=== PATIENT | male | born 1955 | race Caucasian/White ===

== ENCOUNTER → 2018-01-19 09:09 | Outpatient (CLI) | payer OTHER, SELFPAY ==
[2018-01-19 10:05] LABS: Amphetamine Urine VISTA NEGATIVE (<1000 ng/mL); Barbiturate Urine VISTA NEGATIVE (< 200 ng/mL); Benzodiazepine Urine VISTA NEGATIVE (< 200 ng/mL); Cocaine Urine VISTA NEGATIVE (< 300 ng/mL); Ecstacy Urine VISTA NEGATIVE (< 500 ng/mL); Methadone Urine VISTA NEGATIVE (< 300 ng/mL); PCP Urine VISTA NEGATIVE (< 25 ng/mL); THC Urine VISTA NEGATIVE (< 50 ng/mL); Vista UDS pH Range 6
== END ==
PROVIDERS: Family Provider Nurse Practitioner Family; PCP Nurse Practitioner Family; Visit Provider Anesthesiology Pain Medicine
DX: F11.20 Opioid dependence, uncomplicated (principal)
CPT/HCPCS: 80307

== ENCOUNTER → 2019-01-17 | Outpatient (CLI) | payer MEDICARE, OTHER, SELFPAY ==
[2019-01-17 10:28] LABS: Amphetamine Urine VISTA NEGATIVE (<1000 ng/mL); Barbiturate Urine VISTA NEGATIVE (< 200 ng/mL); Benzodiazepine Urine VISTA NEGATIVE (< 200 ng/mL); Cocaine Urine VISTA NEGATIVE (< 300 ng/mL); Ecstacy Urine VISTA NEGATIVE (< 500 ng/mL); Methadone Urine VISTA NEGATIVE (< 300 ng/mL); PCP Urine VISTA NEGATIVE (< 25 ng/mL); THC Urine VISTA NEGATIVE (< 50 ng/mL); Vista UDS pH Range 6
== END | disposition home or self-care (01) ==
LOC: LAB 09:04
PROVIDERS: Family Provider Nurse Practitioner Family; PCP Nurse Practitioner Family; Referring Provider Anesthesiology Pain Medicine; Visit Provider Anesthesiology Pain Medicine
DX: F11.20 Opioid dependence, uncomplicated (principal)
CPT/HCPCS: 80307

== ENCOUNTER → 2019-12-14 10:50 | Outpatient (CLI) | payer MEDICARE, OTHER, SELFPAY ==
[2019-12-14 11:29] LABS: Amphetamine Urine VISTA NEGATIVE (<1000 ng/mL); Barbiturate Urine VISTA NEGATIVE (< 200 ng/mL); Benzodiazepine Urine VISTA NEGATIVE (< 200 ng/mL); Cocaine Urine VISTA NEGATIVE (< 300 ng/mL); Ecstacy Urine VISTA NEGATIVE (< 500 ng/mL); Methadone Urine VISTA NEGATIVE (< 300 ng/mL); PCP Urine VISTA NEGATIVE (< 25 ng/mL); THC Urine VISTA NEGATIVE (< 50 ng/mL); Vista UDS pH Range 7
== END ==
PROVIDERS: PCP Nurse Practitioner Family; Referring Provider Anesthesiology Pain Medicine; Visit Provider Anesthesiology Pain Medicine
DX: F11.20 Opioid dependence, uncomplicated (principal)
CPT/HCPCS: 80307

== ENCOUNTER → 2020-08-13 09:04 | Outpatient (CLI) | payer MEDICARE, OTHER, SELFPAY ==
[2020-08-13 10:11] LABS: Amphetamine Urine VISTA NEGATIVE (<1000 ng/mL); Barbiturate Urine VISTA NEGATIVE (< 200 ng/mL); Benzodiazepine Urine VISTA NEGATIVE (< 200 ng/mL); Cocaine Urine VISTA NEGATIVE (< 300 ng/mL); Ecstacy Urine VISTA NEGATIVE (< 500 ng/mL); Methadone Urine VISTA NEGATIVE (< 300 ng/mL); PCP Urine VISTA NEGATIVE (< 25 ng/mL); THC Urine VISTA NEGATIVE (< 50 ng/mL); Vista UDS pH Range 8
== END ==
PROVIDERS: PCP Nurse Practitioner Family; Referring Provider Anesthesiology Pain Medicine; Visit Provider Anesthesiology Pain Medicine
DX: F11.20 Opioid dependence, uncomplicated (principal)
CPT/HCPCS: 80307

== ENCOUNTER → 2020-12-24 07:08 | Outpatient (CLI) | payer MEDICARE, OTHER, SELFPAY ==
--- NOTE | 2020-12-24 07:14 | MRI_ITS ---
History: LOW BACK PAIN X YEARS Technique: T1 and T2 MR imaging of the lumbar spine performed without contrast enhancement in axial and sagittal planes. Comparison: January 26, 2017 Findings: Alignment of the lumbar vertebral bodies is normal. Multilevel disc degeneration and facet arthropathy again seen. Modic type II endplate changes at L3-4 persist without significant change. Conus medullaris and cauda equina are normal. Paraspinal soft tissues are normal. Interval placement of aortobiiliac graft across 4.2 cm infrarenal AAA. T12-L1: No disc protrusion. Normal caliber spinal canal and neural foramina. L1 - L2: No disc protrusion. Normal caliber spinal canal and neural foramina. L2-3: Mild disc bulging without significant spinal stenosis. Moderate narrowing of the right neural foramen related to prominent facet arthropathy and lateral disc bulging. L3-4: Prominent right central disc osteophyte complex causing significant narrowing of the right lateral recess and adjacent neural foramen. Right-sided facet arthropathy also contributes to the neural foraminal narrowing. Interval improvement in the epidural adipose tissue resulting in decrease in the narrowing of the thecal sac. L4-5: Interval improvement in the disc protrusion and in the amount of posterior epidural adipose tissue resulting in less prominent spinal stenosis moderate narrowing of the neural foramina related to facet arthropathy. L5-S1: No disc protrusion. Normal caliber spinal canal and neural foramina. IMPRESSION: Improving spinal stenosis at L3-4 and L4-5 secondary to decrease in the epidural adipose tissue and in the improvement of the L4-5 disc protrusion. Persistent significant narrowing of the right L3-4 lateral recess and neural foramen secondary to right central disc osteophyte complex and facet arthropathy. at 0825 Reported and signed by: Yoni Ramirez MD Electronically Signed: Yoni Ramirez MD at 8:24 EDT Tel , Service support , MRI/Spine Lumbar (Routine)
== END ==
PROVIDERS: PCP Nurse Practitioner Family; Referring Provider Anesthesiology Pain Medicine; Visit Provider Anesthesiology Pain Medicine
DX: M54.9 Dorsalgia, unspecified (principal); M79.606 Pain in leg, unspecified
CPT/HCPCS: 72148

== ENCOUNTER → 2021-01-31 10:03 | Outpatient (CLI) | payer MEDICARE, OTHER, SELFPAY ==
[2021-01-31 11:33] LABS: Amphetamine Urine VISTA NEGATIVE (<1000 ng/mL); Barbiturate Urine VISTA NEGATIVE (< 200 ng/mL); Benzodiazepine Urine VISTA NEGATIVE (< 200 ng/mL); Cocaine Urine VISTA NEGATIVE (< 300 ng/mL); Ecstacy Urine VISTA NEGATIVE (< 500 ng/mL); Methadone Urine VISTA NEGATIVE (< 300 ng/mL); PCP Urine VISTA NEGATIVE (< 25 ng/mL); THC Urine VISTA NEGATIVE (< 50 ng/mL); Vista UDS pH Range 6
== END ==
PROVIDERS: PCP Nurse Practitioner Family; Referring Provider Anesthesiology Pain Medicine; Visit Provider Anesthesiology Pain Medicine
DX: F11.20 Opioid dependence, uncomplicated (principal)
CPT/HCPCS: 80307

== ENCOUNTER → 2021-12-23 | Outpatient (CLI) | payer MEDICARE, OTHER, SELFPAY ==
--- NOTE | 2021-12-23 08:35 | LES_PTH ---
PATIENT: MARIAN ZIMMERMAN LOC: [facility] U#:[id number] AGE/SX: 66/M ROOM: RE12/23/[address]: Dr. Gavin Espinoza MD : 1955 BED: DIS: 12/23/2021 SPEC #: [id number] RECD: 12/23/21 15:06 STATUS: ANTONIA CHAVEZ #: [id number] EV: 12/23/21 08:[address]: Gavin Espinoza DEPT: SURGICAL PATHOLOGY RECD BY: Kym Mandujano ENTERED: 12/24/21 07:51 SP TYPE: Lesion OTHR DR: Claudia Bautista, ZOE Tissues: Skin of external ear, NOS Procedures: Surgery Specimen Level IV HEADER OPERATION: Right ear lesion biopsy PRE-OP DIAGNOSIS: Right ear lesion TISSUE SUBMITTED: Right ear lesion MICROSCOPIC DIAGNOSIS Lesion of right ear, biopsy: Consistent with basal cell carcinoma. AM:bambi 12/25/2021 COMMENT Case has been reviewed in consultation with Dr. Nicholas who concurs with the above diagnosis. IDC:SJ MICROSCOPIC DESCRIPTION Slides are reviewed. GROSS DESCRIPTION Received in fixative is one container labeled with the patient's name and designated right ear lesion. The specimen consists of a piece of brower-white skin measuring 0.5 x 0.2 x 0.1 cm. The specimen is totally submitted in one cassette. / LORETTA:bambi 12/24/2021 TC:0 CPT: 12234
== END | disposition home or self-care (01) ==
LOC: LABSPEC 15:27
PROVIDERS: PCP Nurse Practitioner Family; Visit Provider Otolaryngology
DX: R22.0 Localized swelling, mass and lump, head (principal)
CPT/HCPCS: 88305

== ENCOUNTER → 2022-01-28 | Outpatient (CLI) | payer MEDICARE, OTHER, SELFPAY ==
--- NOTE | 2022-01-28 06:30 | EKG12_ITS ---
Test Reason : PRE OP Blood Pressure : / mmHG Vent. Rate : 084 BPM Atrial Rate : 084 BPM P-R Int : 276 ms QRS Dur : 080 ms QT Int : 340 ms P-R-T Axes : 069 061 084 degrees QTc Int : 401 ms Sinus rhythm with 1st degree A-V block Otherwise normal ECG No previous ECGs available Confirmed by NYDIA FINCH, ERNESTINE ([id number]), continuity editor ROSEANNA LEMOS ([id number]) on 01/30/2022 9:31:42 AM Referred By: Israel Espinoza Confirmed By:ERNESTINE STAFFORD MD
[2022-01-28 06:35] VITALS: BP 103/67; PULSE 77; RESP 18; TEMP 36.8; O2SAT 90; BMI 30.1
[2022-01-28] MEDS: Lactated Ringers 1,000 ML 15 ML IV (06:35)
[2022-01-28 06:56] LABS: Bedside Glucose 118 mg/dL (74-106)
[2022-01-28 07:07] LABS: Anion Gap 4 (5-15); BUN 18 mg/dL (7-18); BUN/Creat Ratio 16.1 RATIO (10-20); Calcium,Total 12.2 mg/dL (8.5-10.1); Chloride 102 mmol/L (98-107); Creatinine, Serum 1.12 mg/dL (0.70-1.30); EST Glomerular Filtration Rate 69 mL/min (>60); Est Glom Filt Rate - Afr Amer 84 mL/min (>60); Estimated Creatinine Clearance 76.49 ml/min; Glucose 107 mg/dL (74-106); Potassium 3.8 mmol/L (3.5-5.1); Sodium Level 136 mmol/L (136-145)
== END | disposition home or self-care (01) ==
LOC: AC 07:52 → PAT 02-28 08:18
PROVIDERS: PCP Nurse Practitioner Family; Referring Provider Otolaryngology; Visit Provider Otolaryngology
DX: Z01.818 Encounter for other preprocedural examination (principal); C44.319 Basal cell carcinoma of skin of other parts of face; I44.0 Atrioventricular block, first degree; Z53.9 Procedure and treatment not carried out, unspecified reason; Z79.899 Other long term (current) drug therapy
CPT/HCPCS: 80048; 82962; 93005; J7120; J2405

== ENCOUNTER → 2022-04-15 | Outpatient (CLI) | payer MEDICARE, OTHER, SELFPAY ==
--- NOTE | 2022-04-15 15:51 | PFTCOMP_ITS ---
COMPLETE PULMONARY FUNCTION TEST INTERPRETATION Brief HPI: Patient is a 67-year-old male, currently under the care of myself, who presents to [facility] for complete pulmonary function tests secondary to diagnosis of dyspnea. Respiratory therapist reports good effort and reproducible results. Interpretation: Forced expiration spirometry shows a mild large airways obstructive ventilatory defect with an FEV1 of 76% predicted. There is no significant bronchodilator response by strict ATS criteria. Spirograms are of good quality and plateau slowly, indicating slowly emptying areas of the lungs. The respiratory flow volume loop shows decreased expiratory flow rates at all lung volumes consistent with airway obstruction. Lung volumes by body plethysmography show an elevated total lung capacity at 9.54 L, 132% predicted. FRC and RV are elevated out of proportion. Lung volume measurements are consistent with hyperinflation and air-trapping. Diffusion capacity by carbon monoxide is decreased at 68% predicted. The airway resistance is normal. No previous pulmonary function tests were available for review. Impression: Irreversible mild large airways obstructive ventilatory defect with a symmetric reduction diffusion capacity, resulting in air trapping with hyperinflation.
== END | disposition home or self-care (01) ==
LOC: PSN 12:13
PROVIDERS: PCP Nurse Practitioner Family; Referring Provider Internal Medicine Critical Care Medicine; Visit Provider Internal Medicine Critical Care Medicine
DX: R06.00 Dyspnea, unspecified (principal); F17.210 Nicotine dependence, cigarettes, uncomplicated
CPT/HCPCS: 94060; 94726; 94729

== ENCOUNTER → 2022-04-17 | Outpatient (CLI) | payer MEDICARE, OTHER, SELFPAY ==
[2022-04-17 14:00] VITALS: PULSE 100; PULSE 114; PULSE 116; PULSE 119; PULSE 123; PULSE 124; PULSE 131; O2SAT 94; O2SAT 95; O2SAT 96; O2SAT 97
--- NOTE | 2022-04-21 05:46 | PCM.PSN.6M ---
PSN 6 Minute Walk Test 6 Minute Walk Test 6 Minute Walk Test: 6 Minute Walk Test PSN:6-Minute Walk Test Start: 04/17/22 14:19 Freq: Status: Active Protocol: RESP.6MINW Document 04/17/22 14:00 EW (Rec: 04/17/22 14:25 EW [id number]) 6 Minute Walk Test Date Performed 04/17/22 Time Performed 14:00 Height 6 ft 3 in Weight: 96.162 kg Weight in Pounds 212.[address]: Sam Lemos Assistive device used: None Pre-test Oxygen Delivery Method Room Air Pulse Ox (%) 95 Pulse Rate (60-100 beats/min) 124 H Dyspnea Jose Alberto Scale (0-10) 3 Exertion Jose Alberto Scale (6-20) 8 1st minute Oxygen Delivery Method Room Air Pulse Ox (%) 96 Pulse Rate (60-100 beats/min) 116 H 2nd minute Oxygen Delivery Method Room Air Pulse Ox (%) 95 Pulse Rate (60-100 beats/min) 123 H 3rd minute Oxygen Delivery Method Room Air Pulse Ox (%) 94 Pulse Rate (60-100 beats/min) 131 H 4th minute Oxygen Delivery Method Room Air Pulse Ox (%) 95 Pulse Rate (60-100 beats/min) 119 H 5th minute Oxygen Delivery Method Room Air Pulse Ox (%) 95 Pulse Rate (60-100 beats/min) 114 H 6th minute Oxygen Delivery Method Room Air Pulse Ox (%) 95 Pulse Rate (60-100 beats/min) 100 Post-test Oxygen Delivery Method Room Air Pulse Ox (%) 97 Pulse Rate (60-100 beats/min) 131 H Dyspnea Jose Alberto Scale (0-10) 3 Exertion Jose Alberto Scale (6-20) 12 Full Laps Walked 18 Partial Lap, Number of Tiles Walked 34 Total Distance Walked (ft) 1096 Interpretation Interpretation: The patient was able to ambulate 1096 feet over the course of 6 minutes on room air with no assistive devices or breaks. The patient experienced no significant desaturation, but did have persistent tachycardia with a peak heart rate of 131 bpm. These findings are consistent with a cardiovascular limitation at exercise tolerance. Recommendations Recommendations: No supplemental oxygen is indicated at this time.
== END | disposition home or self-care (01) ==
LOC: PSN 14:02
PROVIDERS: PCP Nurse Practitioner Family; Referring Provider Internal Medicine Critical Care Medicine; Visit Provider Internal Medicine Critical Care Medicine
DX: R06.00 Dyspnea, unspecified (principal); F17.210 Nicotine dependence, cigarettes, uncomplicated
CPT/HCPCS: 94618

== ENCOUNTER → 2022-09-24 | Outpatient (CLI) | payer MEDICARE, OTHER, SELFPAY ==
[2022-09-24 11:46] LABS: Amphetamine Urine VISTA NEGATIVE (<1000 ng/mL); Barbiturate Urine VISTA NEGATIVE (< 200 ng/mL); Benzodiazepine Urine VISTA NEGATIVE (< 200 ng/mL); Cocaine Urine VISTA NEGATIVE (< 300 ng/mL); Ecstacy Urine VISTA NEGATIVE (< 500 ng/mL); Methadone Urine VISTA NEGATIVE (< 300 ng/mL); PCP Urine VISTA NEGATIVE (< 25 ng/mL); THC Urine VISTA NEGATIVE (< 50 ng/mL); Vista UDS pH Range 6
== END | disposition home or self-care (01) ==
LOC: LAB 10:11
PROVIDERS: PCP Nurse Practitioner Family; Visit Provider Anesthesiology Pain Medicine
DX: F11.20 Opioid dependence, uncomplicated (principal)
CPT/HCPCS: 80307

== ENCOUNTER 2022-10-27 18:10 | Emergency (ER) | payer MEDICARE, OTHER, SELFPAY ==
[2022-10-27] VITALS (13 sets, daily range): BP systolic 102–157; BP diastolic 63–81; PULSE 93–134; RESP 18–27; TEMP 36.8–39.5; O2SAT 94–99; BMI 31.4
[2022-10-27] MEDS: 0.9% Normal Saline 1,000 ML 999 ML IV (19:15)
[2022-10-27] MEDS: Acetaminophen 500 MG Tablet 1000 MG PO (19:15)
--- NOTE | 2022-10-27 19:17 | EDS_ITS ---
HPI History of Present Illness Chief Complaint: Fever Narrative Narrative: History is from patient as well as family. Patient presents with fever about 1 week after chemotherapy. This patient was diagnosed with bladder cancer and had bladder removal and ileal conduit placed this July [address] Holdne at [facility]. He sees Dr. Townsend for chemotherapy here. He had his second chemotherapy on Thursday. He started with a fever today. He is not coughing or short of breath. He has no pains anywhere. He has no change in the urine output or appearance. He has no rash or sore area. No diarrhea. No headache. He feels overall tired and feels too weak to walk around and has a fever. [facility] Medical History Arthritis Back pain Cancer CPAP (continuous positive airway pressure) dependence Diabetes Dietary restriction Fatty liver Gastric reflux History of edema History of pain when walking History of steroid therapy History of stress test Hx of abdominal aortic aneurysm Hypertension Marijuana use Pain Smoker Thyroid disease Wears dentures Wears glasses Wears hearing aid Home Medications diphenhydramine HCl 50 mg capsule (Unisom SleepGels) 50 mg PO QHS 01/21/22 [History Last Taken Unknown] enalapril maleate 20 mg tablet 40 mg PO DAILY 01/21/22 [History Last Taken 01/28/22] hydrocodone 7.5 mg-acetaminophen 325 mg tablet 1 tab PO Q6H PRN Pain 01/21/22 [History Last Taken Unknown] indapamide 2.5 mg tablet 2.5 mg PO DAILY 01/21/22 [History Last Taken Unknown] metformin 500 mg tablet 500 mg PO BID 01/21/22 [History Last Taken Unknown] omeprazole 20 mg delayed release,disintegrating tablet 20 mg PO DAILY 01/21/22 [History Last Taken 01/28/22] cinacalcet 30 mg tablet 30 mg PO BID 03/11/22 [History Last Taken Unknown] levofloxacin 750 mg tablet 750 mg PO DAILY #4 tabs 10/27/22 [Rx Last Taken Unknown] Allergy/AdvReac Type Severity Reaction Status Date / Time warfarin [From Coumadin] Allergy LEGS TURN Verified 10/27/22 18:13 PURPLE Surgical History History of cardiac catheterization History of excision of lesion Hx of tonsillectomy Hx of total knee arthroplasty Social History Smoking Status: Current every day smoker tobacco type: cigarettes ROS ROS ED Constitutional Constitutional ED: Reports chills, fever(s) and subjective; Denies sweats ENT ENT ED: Denies rhinorrhea or sore throat Cardiovascular Cardiovascular: Denies chest pain or palpitations Respiratory/Chest Respiratory/Chest: Denies cough or dyspnea Gastrointestinal Gastrointestinal: Denies abdominal pain, nausea or vomiting Genitourinary Genitourinary ED: Denies dysuria or hematuria Musculoskeletal Musculoskeletal: Denies myalgias Integumentary Denies abscess, Abrasions or rash Neurologic Neurologic: Denies headache(s) Hematologic/Lymphatic Hematologic/Lymphatic: Denies lymphadenopathy Allergic/Immunologic Allergic/Immunologic ED: Denies urticaria EXAM Physical Exam Narrative Exam Narrative: Patient is awake alert. He looks like he does not feel well but is not toxic. HEENT: He does have dry mucous membranes. No sinus tenderness or exudate noted. No nasal discharge. Neck is supple without any meningismus. Breathing is somewhat heavy but he denies being short of breath. His breath sounds are clear. He is not coughing. His saturations are about 95 to 96% on room air showing no hypoxia and he does have a long history of smoking and just quit a couple weeks ago. He has a med port in the right upper chest that was accessed. It looks healthy and is not at all red or inflamed or tender. Heart is regular but is tachycardic about 120. I do not hear a murmur. He has distal pulses that are okay and normal. Abdomen is soft nontender. Ileal conduit in the right lower quadrant. Urine appears normal to me and looks normal to his and unchanged from his baseline. No CVA tenderness. Extremities show some tattoos but no rashes or lesions or sores. Neurologic: Patient is awake and alert. He seems tired but there is no focal deficit. Const Vital Signs: 10/27/22 18:11 10/27/22 18:50 10/27/22 18:57 Temperature 102.9 F H Temperature Source Oral Pulse Rate 134 H 122 H Respiratory Rate 18 27 H Respiratory Effort Non-Labored Respiratory Pattern Normal Blood Pressure 157/76 H 141/81 H Blood Pressure Mean 103 101 Pulse Ox 95 96 Oxygen Delivery Method Room Air Room Air 10/27/22 18:58 10/27/22 19:11 10/27/22 19:17 Temperature 103.1 F H Temperature Source Oral Pulse Rate 124 H 124 H Respiratory Rate 27 H 27 H Respiratory Effort Respiratory Pattern Blood Pressure 144/79 H 144/79 H Blood Pressure Mean 100 100 Pulse Ox 95 96 96 Oxygen Delivery Method Room Air Room Air Room Air 10/27/22 20:01 10/27/22 20:12 10/27/22 20:26 Temperature 102.2 F H 102.2 F H Temperature Source Oral Oral Pulse Rate 111 H 100 112 H Respiratory Rate 22 H 21 H 23 H Respiratory Effort Respiratory Pattern Blood Pressure 141/79 H 141/79 H 117/64 Blood Pressure Mean 99 99 81 Pulse Ox 95 97 96 Oxygen Delivery Method Room Air Room Air Room Air 10/27/22 21:13 10/27/22 21:43 Temperature 99.5 F H Temperature Source Oral Pulse Rate 101 H 107 H Respiratory Rate 21 H 22 H Respiratory Effort Respiratory Pattern Blood Pressure 116/63 110/70 Blood Pressure Mean 80 83 Pulse Ox 99 95 Oxygen Delivery Method Room Air Room Air MDM MDM MDM Narrative Medical decision making narrative: My independent interpretation of the patient's single view chest x-ray shows Mediport and some chronic appearing changes but no acute infiltrate. Final reading by radiology is no acute findings in the chest. Patient has a normal white count of 4.8 and normal neutrophil count. He is anemic. Hemoglobin 7 6. I do not have a prior. Electrolytes showed mild increase creatinine 1.31. But he is given IV fluids. Liver function test showed mild elevation of the alk phos at 224 but he has no abdominal pain. No Urine showed some signs of suspicious infection but he has an ileal conduit. Culture is pending. I discussed the case with his oncologist, Dr. Townsend. Patient has a normal lac lance of 1.2. His heart rate is now down to 90s with IV fluids and decrease of his temperature to 99.5. He wants to go home. Dr. Townsend was okay with this plan. We will give him a dose of Levaquin here. I will write him for another 4 days of Levaquin. A respiratory panel was sent off. They will follow him up in the office. I talked about all these issues plans and reasons to return with patient and his family members in the room. Lab Data Attestation: I reviewed the patient's lab results. Labs: Laboratory Results - last 24 hr 10/27/22 10/27/22 10/27/22 18:55 18:55 18:55 WBC 4.8 RBC 3.10 L Hgb 7.6 L Hct 24.9 L MCV 80.3 MCH 24.5 L MCHC 30.5 L RDW Std Deviation 67.9 H RDW Coeff of Cintia 24.3 H Plt Count 228 MPV 10.1 Neut % (Auto) Not Reportable Absolute Neuts (auto) 4.1 Absolute Lymphs (auto) 0.48 L Total Counted 100 Neutrophils % (Manual) 81 H Band Neutrophils % 4 Lymphocytes % (Manual) 10 L Monocytes % (Manual) 2 Myelocytes % 3 H Diff Path Review May foll Dohle Bodies 2+ Platelet Estimate ADEQUATE Anisocytosis 2+ Microcytosis 1+ Macrocytosis 1+ PT 15.8 H INR 1.3 APTT 28.3 Sodium 133 L Potassium 4.6 Chloride 103 Carbon Dioxide 25.0 Anion Gap 5 BUN 35 H Creatinine 1.31 H Estim Creat Clear Calc 64.50 Est GFR (MDRD) Af Amer 70 Est GFR (MDRD) Non-Af 58 L BUN/Creatinine Ratio 26.7 H Glucose 114 H Lactic Acid Calcium 8.1 L Total Bilirubin 1.40 H AST 40 H ALT 56 Alkaline Phosphatase 224 H Total Protein 7.1 Albumin 2.8 L Globulin 4.3 H Albumin/Globulin Ratio 0.7 L Urine Color Urine Clarity Urine pH Ur Specific [place] Urine Protein Urine Glucose (UA) Urine Ketones Urine Occult Blood Urine Nitrite Urine Bilirubin Urine Urobilinogen Ur Leukocyte Esterase Urine RBC Urine WBC Ur Squamous Epith Cells Urine Bacteria Urine Mucus 10/27/22 10/27/22 19:45 20:46 WBC RBC Hgb Hct MCV MCH MCHC RDW Std Deviation RDW Coeff of Cintia Plt Count MPV Neut % (Auto) Absolute Neuts (auto) Absolute Lymphs (auto) Total Counted Neutrophils % (Manual) Band Neutrophils % Lymphocytes % (Manual) Monocytes % (Manual) Myelocytes % Diff Path Review Dohle Bodies Platelet Estimate Anisocytosis Microcytosis Macrocytosis PT INR APTT Sodium Potassium Chloride Carbon Dioxide Anion Gap BUN Creatinine Estim Creat Clear Calc Est GFR (MDRD) Af Amer Est GFR (MDRD) Non-Af BUN/Creatinine Ratio Glucose Lactic Acid 1.2 Calcium Total Bilirubin AST ALT Alkaline Phosphatase Total Protein Albumin Globulin Albumin/Globulin Ratio Urine Color Yellow Urine Clarity Sl. Cloudy Urine pH 6.0 Ur Specific [place] 1.010 Urine Protein 30 H Urine Glucose (UA) Normal Urine Ketones Negative Urine Occult Blood 50 H Urine Nitrite Positive H Urine Bilirubin Negative Urine Urobilinogen 1 H Ur Leukocyte Esterase 500 H Urine RBC 0-5 SEEN Urine WBC 10-25 SEEN Ur Squamous Epith Cells 0 SEEN Urine Bacteria 1+ Urine Mucus 0 SEEN Radiography Diagnostic Testing: Clinical Impression(s) from Imaging Studies Chest X-Ray 10/27/22 19:22 IMPRESSION: No acute findings in the chest. Electronically Signed: Jhon Babcock MD at 19:43 EDT Reading Location ID and State: [facility] / [place] , Service support , Discharge Plan Triage Chief Complaint: Fever ED Provider: Migel Cruz Dx/Rx/DC Orders Clinical Impression: Fever, Bladder cancer, Anemia Instructions: ED FUO Adult Prescriptions: New levofloxacin 750 mg tablet 750 mg PO DAILY Qty: 4 0RF No Action cinacalcet 30 mg tablet 30 mg PO BID metformin 500 mg Tablet 500 mg PO BID diphenhydramine HCl [Unisom SleepGels] 50 mg Capsule 50 mg PO QHS indapamide 2.5 mg Tablet 2.5 mg PO DAILY enalapril maleate 20 mg Tablet 40 mg PO DAILY hydrocodone-acetaminophen 7.5-325 mg Tablet 1 tab PO Q6H PRN (Reason: Pain) omeprazole 20 mg Tablet,Disintegrat, Delay Rel 20 mg PO DAILY Primary Care Provider: Claudia Bautista NP Referrals: Aristides Townsend DO [Med Staff - Active Staff] - (Call in the morning for follow-up visit in the next couple days.) Claudia Bautista NP, LASTING ROOM MACHINE OPERATOR-C [Primary Care Provider] - Disposition Disposition: Home, Self Care
--- NOTE | 2022-10-27 19:22 | RAD_ITS ---
EXAM: XR CHEST, 1 VIEW CLINICAL INDICATION: Neutropenic Fever TECHNIQUE: Frontal view of the chest. This report was created using [employer] report generation technology. COMPARISON: None. FINDINGS: LUNGS AND PLEURAL SPACES: Unremarkable. No consolidation or edema. No pneumothorax. No effusion. HEART: Unremarkable. Cardiac silhouette not enlarged. MEDIASTINUM: Central airways and mediastinal contour are unremarkable. BONES/JOINTS: Unremarkable. SOFT TISSUES: Unremarkable. TUBES, LINES AND DEVICES: There is a right Port-A-Cath and/or mediport in place. The tip is in the superior vena cava. RAD/Chest 1 View (Portable) IMPRESSION: No acute findings in the chest. Electronically Signed: Jhon Babcock MD at 19:43 EDT ,
[2022-10-27 19:42] LABS: Hematocrit 24.9 % (40-54); Hemoglobin 7.6 g/dL (13.0-16.5); Mean Corp Hgb Conc 30.5 g/dL (32-36); Mean Corpuscular Hgb 24.5 pg (27.0-32.0); Mean Corpuscular Volume 80.3 fL (80-94); Mean Platelet Vol. 10.1 fl (6.2-12.0); POSITIVE COUNT YES; POSITIVE DIFFERENTIAL YES; POSITIVE MORPHOLOGY YES; Platelet Count 228 K/mm3 (150-450); RBC Distribution Width CV 24.3 % (11.6-14.6); RBC Distribution Width SD 67.9 fl (35.1-43.9); White Blood Count 4.8 K/mm3 (4.4-11.0)
[2022-10-27 19:44] LABS: Differential Indicated MANUAL DIFF
[2022-10-27 19:46] LABS: International Normalized Ratio 1.3; Prothrombin Time (Protime)PT. 15.8 SECONDS (11.7-14.9)
[2022-10-27 19:47] LABS: Partial Thromboplast Time 28.3 Seconds (24.1-36.2)
--- NOTE | 2022-10-27 19:49 | ED.RN ---
PT REFUSED TO CHANGE URINE BAG IN ORDER TO OBTAIN A STERILE SPECIMEN FOR URINE CULTURE. DR. MESSER AWARE, OKAY TO SEND DOWN SAMPLE FROM CURRENT URINE BAG.
[2022-10-27 19:54] LABS: Mucous, Urine 0 SEEN /hpf (<or=2+); Squamous Epithelial Cells - UA 0 SEEN /hpf (0-5)
[2022-10-27 19:55] LABS: Color, Urine Yellow (Yellow); Glucose, Dipstick Normal (Normal); Ketone-Dipstick Negative (Negative); Leukocyte Esterase-Dipstick 500 /ul (Negative); Nitrite-Dipstick Positive (Negative); Occult Blood-Urine 50 /ul (Negative); Protein-Dipstick 30 mg/dl (Negative); Urine Bilirubin Dipstick Negative (Negative); Urine Clarity Sl. Cloudy (Clear); Urine Urobilinogen 1 mg/dl (Normal)
[2022-10-27 19:55] LABS: ALB/GLOB Ratio 0.7 RATIO (0.9-2.4); AST(SGOT) 40 U/L (15-37); Alanine Aminotransfer ALT/SGPT 56 U/L (16-61); Albumin, Serum 2.8 g/dL (3.2-5.0); Alkaline Phosphatase 224 U/L (45-117); Anion Gap 5 (5-15); BUN 35 mg/dL (7-18); BUN/Creat Ratio 26.7 RATIO (10-20); Calcium,Total 8.1 mg/dL (8.5-10.1); Chloride 103 mmol/L (98-107); Creatinine, Serum 1.31 mg/dL (0.70-1.30); EST Glomerular Filtration Rate 58 mL/min (>60); Est Glom Filt Rate - Afr Amer 70 mL/min (>60); Globulin 4.3 g/dL (2.2-4.2); Glucose 114 mg/dL (74-106); Potassium 4.6 mmol/L (3.5-5.1); Protein, Total 7.1 g/dL (6.4-8.2); Sodium Level 133 mmol/L (136-145)
[2022-10-27 20:04] LABS: Anisocytosis 2+; Dohle Bodies 2+; Lymphocyte 10 % (19-41); Macrocytosis 1+; Microcytosis 1+; Monocyte 2 % (0-10); Myelocyte 3 % (0-0); Neutrophil-Band 4 % (0-5); Neutrophil-Segmented 81 % (47-70); Platelet Estimate ADEQUATE (ADEQ); Total Cells Counted 100 (MANUAL DIFF)
[2022-10-27 20:04] LABS: Bacteria 1+ /hpf (None Seen)
[2022-10-27 20:05] LABS: Red Blood Cells-Urine 0-5 SEEN /hpf (0-5); White Blood Cells 10-25 SEEN /hpf (0-5)
[2022-10-27 20:06] LABS: Absolute Lymphocyte Count 0.48 X10^3/uL (0.83-4.51); Absolute Neutrophil Count 4.1 X10^3/uL (2.0-7.7)
[2022-10-27] MEDS: 0.9% Normal Saline 1,000 ML 50 ML IV (20:42)
[2022-10-27 21:19] LABS: Lactic Acid 1.2 mmol/L (0.4-1.9)
[2022-10-27] MEDS: levoFLOXacin IV 750 MG/150 ML BAG 100 MG IV (21:42)
--- NOTE | 2022-10-28 13:54 | ED.RN ---
PER DR. RICH, PT PRELIMINARY ONE BLOOD CULTURE POSITIVE FOR NEGATIVE RODS. WILL WAIT FOR FINAL RESULTS.
--- NOTE | 2022-10-28 14:09 | ED.RN ---
PRELIMINARY REPORT PRINTED AND REVIEWED PER DR. FULTON. PER DR. FULTON WITH PT HX AND POSITIVE PRELIMINARY BLOOD CULTURE PT SHOULD RETURN TO ED TO BE SEEN. THIS RN CALLED, PT DID NOT ANSWER AND LEFT PT A VOICE MESSAGE WITH ED CALL BACK NUMBER.
--- NOTE | 2022-10-28 14:25 | ED.RN ---
PT RETURNED PHONE CALL TO ED REPORTING POSITIVE BLOOD CULTURE RESULTS AFTER VERIFYING PT INFORMATION. PER PT WILL BE IN TO THE ED SHORTLY.
[2022-10-29 10:49] LABS: Pathologist Review Reviewed
== END 2022-10-27 23:48 | disposition home or self-care (01) ==
PROVIDERS: Emergency Provider Emergency Medicine; PCP Nurse Practitioner Family; Visit Provider Emergency Medicine
DX: R50.9 Fever, unspecified (principal); C67.9 Malignant neoplasm of bladder, unspecified; E11.9 Type 2 diabetes mellitus without complications; F17.210 Nicotine dependence, cigarettes, uncomplicated; I10 Essential (primary) hypertension; Z92.21 Personal history of antineoplastic chemotherapy; Z90.6 Acquired absence of other parts of urinary tract; D64.9 Anemia, unspecified; Z20.822 Contact with and (suspected) exposure to COVID-19
CPT/HCPCS: 99283; 36591; 71045; 80053; 81001; 83605; 85025; 85610; 85730; 87040; 87086; 87428; 87633; J7030; A4216

== ENCOUNTER 2022-10-28 15:11 | Inpatient (IN) | payer MEDICARE, OTHER, SELFPAY ==
[2022-10-28] VITALS (10 sets, daily range): BP systolic 99–164; BP diastolic 66–79; PULSE 80–143; RESP 16–23; TEMP 36.5–39.3; O2SAT 93–100; BMI 28.1; BMI 27.3
--- NOTE | 2022-10-28 15:28 | EDS_ITS ---
HPI History of Present Illness Chief Complaint: Abn Labs Detail of Chief Complaint: Abnormal labs/blood culture Informant: patient Narrative Narrative: Patient presents to the emergency department after being called by the emergency department to be informed that he had a positive blood culture. Patient presented to the emergency department yesterday with complaint of a fever. Patient currently being treated for bladder cancer and his last chemotherapy was 1 week ago. Patient has a urostomy bag. The urine that was obtained was sent for culture and blood cultures were ordered. Lactate was normal initially in the department. ED physician spoke with patient's oncologist and patient wanted to go home so he was discharged on Levaquin. Today's blood culture came back positive for gram-negative rods. He was advised to return to the emergency department. Patient states that he actually feels better than yesterday. Patient was noted to be tachycardic and febrile on arrival to the ER. He denies any rashes. He denies vomiting. He did have some diarrhea this morning. [facility] Medical History Arthritis Back pain Cancer CPAP (continuous positive airway pressure) dependence Diabetes Dietary restriction Fatty liver Gastric reflux History of edema History of pain when walking History of steroid therapy History of stress test Hx of abdominal aortic aneurysm Hypertension Marijuana use Pain Smoker Thyroid disease Wears dentures Wears glasses Wears hearing aid Home Medications diphenhydramine HCl 50 mg capsule (Unisom SleepGels) 50 mg PO QHS 01/21/22 [History Last Taken Unknown] enalapril maleate 20 mg tablet 40 mg PO DAILY 01/21/22 [History Last Taken 01/28/22] hydrocodone 7.5 mg-acetaminophen 325 mg tablet 1 tab PO Q6H PRN Pain 01/21/22 [History Last Taken Unknown] indapamide 2.5 mg tablet 2.5 mg PO DAILY 01/21/22 [History Last Taken Unknown] metformin 500 mg tablet 500 mg PO BID 01/21/22 [History Last Taken Unknown] omeprazole 20 mg delayed release,disintegrating tablet 20 mg PO DAILY 01/21/22 [History Last Taken 01/28/22] cinacalcet 30 mg tablet 30 mg PO BID 03/11/22 [History Last Taken Unknown] levofloxacin 750 mg tablet 750 mg PO DAILY #4 tabs 10/27/22 [Rx Last Taken Unknown] Allergy/AdvReac Type Severity Reaction Status Date / Time warfarin [From Coumadin] Allergy LEGS TURN Verified 10/27/22 18:13 PURPLE Surgical History History of cardiac catheterization History of excision of lesion Hx of tonsillectomy Hx of total knee arthroplasty Social History Smoking Status: Current every day smoker tobacco type: cigarettes ROS ROS ED Review of Systems ROS Unobtainable: other Constitutional Constitutional ED: Reports fever(s) and lethargy; Denies chills, sweats or weight loss Eyes Eyes: Denies blurry vision, change in vision or diplopia ENT ENT ED: Denies rhinorrhea or sore throat Cardiovascular Cardiovascular: Denies chest pain, orthopnea or racing heartbeat Respiratory/Chest Respiratory/Chest: Reports dyspnea and dyspnea on exertion; Denies cough, orthopnea or sputum Gastrointestinal Gastrointestinal: Denies abdominal pain, diarrhea, nausea or vomiting Genitourinary Genitourinary ED: Denies dysuria, hematuria or urinary frequency Musculoskeletal Musculoskeletal: Denies arthralgias, back pain, myalgias or neck pain Integumentary Denies abscess, Abrasions or rash Neurologic Neurologic: Denies headache(s) or weakness Psychiatric Psychiatric: Denies anxiety, depression or suicidal thoughts Endocrine Endocrinology: Denies polydipsia, polyphagia or polyuria Hematologic/Lymphatic Hematologic/Lymphatic: Denies easy bleeding, easy bruising or lymphadenopathy Allergic/Immunologic Allergic/Immunologic ED: Denies mouth swelling, tongue swelling or urticaria EXAM Physical Exam Const Vital Signs: 10/28/22 15:12 Temperature 101.2 F H Temperature Source Temporal Pulse Rate 143 H Respiratory Rate 16 Blood Pressure 164/76 H Blood Pressure Mean 105 Pulse Ox 97 Oxygen Delivery Method Room Air Positive well nourished and well developed General Appearance ED: well developed and NAD HEENT Reports TM's clear and moist mucous membranes normocephalic and atraumatic; Negative for trauma or tenderness Tympanic Membrane ED: Yes TM's clear Eyes PERRL and EOMs intact bilaterally General Eye ED: Negative for pale conjunctiva or scleral icterus Neck no lymphadenopathy, supple and no JVD General: Negative for tenderness Chest Wall inspection of chest normal and palpation of chest normal Chest: Negative for tenderness Resp Resp Narrative: Patient tachypneic on arrival with some mild conversational dyspnea. He does have some coarse breath sounds and rhonchi bilaterally. No accessory muscle use or retractions. Effort and Inspection: Negative for respiratory distress or pain with movement Auscultation: Negative for rhonchi, wheezes or diminished lung sounds Cardio regular rhythm, S1 normal heart sound, S2 normal heart sound and no murmurs Rate: tachycardic Peripheral Pulses: pulses 2+ throughout GI normal to inspection, nondistended, normoactive bowel sounds, soft to palpation, non-tender, non-distended and no masses Back/Spine no CVA tenderness and no thoracic nor lumbar tenderness Extremity normal to inspection General Extremety ED: Negative for edema General Extremity: Negative for edema Neuro oriented x3, CN's II-XII intact bilaterally, no sensory deficits noted and gait normal Sensorium / Orientation: awake, alert, oriented to person, oriented to place and oriented to time Motor Exam: strength 5/5 throughout and strength abnormal Psych mental status grossly normal Skin no rashes or lesions noted and no wounds MDM MDM MDM Narrative Medical decision making narrative: Patient had basic labs ordered and repeat lactate ordered. Patient will be started on Zosyn IV given the blood culture grew out gram-negative rods. Care of patient will be turned over to evening physician awaiting lab results and patient will require admission for bacteremia and suspected urosepsis. Discharge Plan Triage Chief Complaint: Abn Labs ED Provider: Sg Arellano Dx/Rx/DC Orders Clinical Impression: Fever, Bacteremia, Tachycardia, History of bladder cancer Prescriptions: No Action cinacalcet 30 mg tablet 30 mg PO BID metformin 500 mg Tablet 500 mg PO BID diphenhydramine HCl [Unisom SleepGels] 50 mg Capsule 50 mg PO QHS indapamide 2.5 mg Tablet 2.5 mg PO DAILY enalapril maleate 20 mg Tablet 40 mg PO DAILY hydrocodone-acetaminophen 7.5-325 mg Tablet 1 tab PO Q6H PRN (Reason: Pain) omeprazole 20 mg Tablet,Disintegrat, Delay Rel 20 mg PO DAILY levofloxacin 750 mg tablet 750 mg PO DAILY Qty: 4 0RF Primary Care Provider: Claudia Bautista NP Referrals: Claudia Bautista NP, FRONT COUNTER CLERK-C [Primary Care Provider] - Disposition Disposition: [facility]
[2022-10-28] MEDS: Acetaminophen 500 MG Tablet 1000 MG PO (16:01)
[2022-10-28] MEDS: 0.9% Normal Saline 1,000 ML 1000 ML IV (16:34)
[2022-10-28 17:34] LABS: Hematocrit 20.2 % (40-54); Hemoglobin 6.2 g/dL (13.0-16.5); Mean Corp Hgb Conc 30.7 g/dL (32-36); Mean Corpuscular Hgb 24.5 pg (27.0-32.0); Mean Corpuscular Volume 79.8 fL (80-94); Mean Platelet Vol. 10.4 fl (6.2-12.0); POSITIVE COUNT YES; POSITIVE DIFFERENTIAL YES; POSITIVE MORPHOLOGY YES; Platelet Count 111 K/mm3 (150-450); RBC Distribution Width CV 24.3 % (11.6-14.6); RBC Distribution Width SD 68.4 fl (35.1-43.9); Red Blood Count 2.53 M/mm3 (4.6-6.2); White Blood Count 1.7 K/mm3 (4.4-11.0)
[2022-10-28 17:53] LABS: ALB/GLOB Ratio 0.6 RATIO (0.9-2.4); AST(SGOT) 35 U/L (15-37); Alanine Aminotransfer ALT/SGPT 49 U/L (16-61); Albumin, Serum 2.3 g/dL (3.2-5.0); Alkaline Phosphatase 166 U/L (45-117); Anion Gap 6 (5-15); BUN 36 mg/dL (7-18); BUN/Creat Ratio 26.3 RATIO (10-20); Calcium,Total 7.3 mg/dL (8.5-10.1); Chloride 104 mmol/L (98-107); Creatinine, Serum 1.37 mg/dL (0.70-1.30); EST Glomerular Filtration Rate 55 mL/min (>60); Est Glom Filt Rate - Afr Amer 66 mL/min (>60); Estimated Creatinine Clearance 61.68 ml/min; Globulin 3.7 g/dL (2.2-4.2); Glucose 120 mg/dL (74-106); Lipase 21 U/L (13-75); Potassium 3.6 mmol/L (3.5-5.1); Sodium Level 134 mmol/L (136-145)
[2022-10-28 17:56] LABS: Differential Indicated MANUAL DIFF
[2022-10-28 18:37] LABS: Lactic Acid 1.8 mmol/L (0.4-1.9)
[2022-10-28 18:50] LABS: Basophil 1 % (0-1); Lymphocyte 7 % (19-41); Monocyte 3 % (0-10); Neutrophil-Band 8 % (0-5); Neutrophil-Segmented 81 % (47-70); Total Cells Counted 100 (MANUAL DIFF)
[2022-10-28 18:53] LABS: Platelet Estimate SLT DEC (ADEQ)
[2022-10-28 18:54] LABS: Anisocytosis 2+; Dohle Bodies 2+; Microcytosis 1+; Ovalocyte 1+; Red Cell Morphology N CHROM NORMAL (NORM C&C)
[2022-10-28 18:55] LABS: Absolute Lymphocyte Count 0.12 X10^3/uL (0.83-4.51); Absolute Neutrophil Count 1.5 X10^3/uL (2.0-7.7); Pathologist Review May foll
[2022-10-28] MEDS: 0.9% Normal Saline 1,000 ML 150 ML IV (19:20)
--- NOTE | 2022-10-28 19:34 | HP.PCM.HOS_ITS ---
HPI - General General Date of Admission: 10/28/22 Date of Service: 10/28/22 Chief Complaint: +blood cultures HPI Narrative MARIAN ZIMMERMAN, is a 67 M with history of bladder cancer with urostomy, mild COPD, CHARI who presented to [facility] originally 10/27 for fever and weakness. He had fever for about 1 week after chemotherapy. Chest x-ray at that time with some chronic changes but no acute infiltrate, white blood cell count 4.8 with normal neutrophil count, was anemic at 7.6. Creatinine was 1.31 and he was given some fluids. UA had showed some suspicious signs of infection but had ileal conduit and culture was pended. It was discussed with his oncologist and given his improvement with IV fluids and patient's desire to go home he was placed on Levaquin and discharged however his blood cultures were found to be positive for gram-negative rods so he was called back to the emergency room. In the ED he was pancytopenic and hemoglobin was 6.2. He was slightly tachycardic and febrile and return to the ED even though he had been feeling better overall though did note some diarrhea in the a.m. He was given fluids, antibiotics, 1 unit packed red blood cells and hospitalist consulted for admission. Patient laying in bed in no acute distress, reports he does feel better than yesterday and has no specific complaints aside from diarrhea that started yesterday after he came to the hospital. Had some cold and shaking episodes this past day but no notable fever. No other complaints or localizing symptoms and denied any problems with his urostomy. [facility] Medical History Arthritis Back pain Cancer CPAP (continuous positive airway pressure) dependence Diabetes Dietary restriction Fatty liver Gastric reflux History of edema History of pain when walking History of steroid therapy History of stress test Hx of abdominal aortic aneurysm Hypertension Marijuana use Pain Smoker Thyroid disease Wears dentures Wears glasses Wears hearing aid Home Medications hydrocodone 7.5 mg-acetaminophen 325 mg tablet 1 tab PO Q6H PRN PAIN 01/21/22 [History Last Taken 10/28/22] indapamide 2.5 mg tablet 2.5 mg PO DAILY FLUID 01/21/22 [History Last Taken 10/28/22] omeprazole 20 mg delayed release,disintegrating tablet 20 mg PO DAILY ACID REFLUX 01/21/22 [History Last Taken 10/28/22] cinacalcet 30 mg tablet 30 mg PO BID 03/11/22 [History Last Taken Unknown] cholecalciferol (vitamin D3) 125 mcg (5,000 unit) tablet (Vitamin D3) 125 mcg PO DAILY SUPPLEMENT 10/28/22 [History Last Taken 10/28/22] docusate sodium 100 mg capsule 100 mg PO BID CONSTIPATION 10/28/22 [History Last Taken 10/27/22] enalapril maleate 5 mg tablet 5 mg PO DAILY BLOOD PRESSURE 10/28/22 [History Last Taken 10/28/22] folic acid 1 mg tablet 1 mg PO DAILY SUPPLEMENT 10/28/22 [History Last Taken 10/28/22] loratadine 10 mg tablet (Claritin) 10 mg PO DAILY TAKEN DURING CHEMO 10/28/22 [History Last Taken Unknown] magnesium chloride 64 mg (magnesium chloride) tablet,delayed release 64 mg PO B ID SUPPLEMENT 10/28/22 [History Last Taken 10/28/22] olanzapine 10 mg tablet 10 mg PO QHS MOOD/SLEEP 10/28/22 [History Last Taken 10/27/22] potassium chloride 20 mEq tablet,extended release(part/cryst) 20 meq PO DAILY SUPPLEMENT 10/28/22 [History Last Taken 10/28/22] Allergy/AdvReac Type Severity Reaction Status Date / Time warfarin [From Coumadin] Allergy LEGS TURN Verified 10/27/22 18:13 PURPLE Surgical History History of cardiac catheterization History of excision of lesion Hx of tonsillectomy Hx of total knee arthroplasty Social History Smoking Status: Current every day smoker tobacco type: cigarettes ROS ROS Narrative General: Had been having some cold and shaking spells over the past day but did not note measurable fever HENT: Denies headache, denies stuffy nose, denies sore throat EYES: Denies changes in vision Resp: Denies cough, denies shortness of breath Cardiac: Denies chest pain GI: Denies abdominal pain, has had some diarrhea, denies nausea/vomiting : Urostomy present without difficulty Extremity: Denies swelling MSK: Denies weakness Neuro: Denies any numbness/tingling Heme: Denies any bleeding or bruising Skin: Denies rashes Psychiatric: No complaints voiced Vital Signs Vital Signs Vital Signs: 10/28/22 15:12 10/28/22 16:12 10/28/22 17:32 Temperature 101.2 F H 102.8 F H Temperature Source Temporal Oral Pulse Rate 143 H 108 H Respiratory Rate 16 23 H Respiratory Effort Short of Breath Respiratory Pattern Normal Blood Pressure 164/76 H 146/79 H Blood Pressure Mean 105 101 Pulse Ox 97 94 Oxygen Delivery Method Room Air Room Air 10/28/22 17:56 10/28/22 18:36 Temperature 99.7 F H Temperature Source Oral Pulse Rate 112 H 102 H Respiratory Rate 20 H 16 Respiratory Effort Respiratory Pattern Blood Pressure 146/79 H 114/66 Blood Pressure Mean 101 82 Pulse Ox 97 Oxygen Delivery Method Room Air Weight Weight: 102.058 kg Body Mass Index (BMI) 28.1 Physical Exam Narrative General: Alert, oriented, no apparent distress HEENT: Atraumatic, normocephalic Eyes: Anicteric, normal conjunctiva, extraocular movements grossly intact Neck: Supple Respiratory: Clear to auscultation bilaterally, normal respiratory effort Cardiovascular: Regular rate and rhythm GI: Soft, nontender, nondistended, urostomy bag in place Extremities: No edema Musculoskeletal: Moving all extremities Neuro: No overt focal neurological deficits Skin: No rashes appreciated Psych: Cooperative Results Lab / Micro Data Result Diagrams: 10/28/22 17:30 10/28/22 17:30 Labs: Laboratory Results - last 24 hr 10/28/22 16:40: WBC Cancelled, Corrected WBC Cancelled, RBC Cancelled, Hgb Cancelled, Hct Cancelled, MCV Cancelled, MCH Cancelled, MCHC Cancelled, RDW Std Deviation Cancelled, RDW Coeff of Cintia Cancelled, Plt Count Cancelled, MPV Cancelled, Immature Gran % (Auto) Cancelled, Neut % (Auto) Cancelled, Lymph % (Auto) Cancelled, [place] % (Auto) Cancelled, Eos % (Auto) Cancelled, Baso % (Auto) Cancelled, Absolute Neuts (auto) Cancelled, Absolute Lymphs (auto) Cancelled, Total Counted Cancelled, Neutrophils % (Manual) Cancelled, Band Neutrophils % Cancelled, Lymphocytes % (Manual) Cancelled, Monocytes % (Manual) Cancelled, Eosinophils % (Manual) Cancelled, Basophils % (Manual) Cancelled, Metamyelocytes % Cancelled, Myelocytes % Cancelled, Promyelocytes % Cancelled, Blast Cells % Cancelled, Plasma Cell % (Manual) Cancelled, Other Cells % Cancelled, Nucleated RBC % Cancelled, Nucleated RBCs/100 WBC Cancelled, Differential Comment Cancelled, Diff Path Review Cancelled, Hypersegmented Neuts Cancelled, Atypical Lymphocytes Cancelled, Reactive Lymphocytes Cancelled, Smudge Cells Cancelled, Toxic Granulation Cancelled, Toxic Vacuolation Cancelled, Dohle Bodies Cancelled, [place] Rods Cancelled, Platelet Estimate Cancelled, Plt Morphology Comment Cancelled, RBC Morphology Cancelled, Polychromasia Cancelled, Hypochromasia Cancelled, Poikilocytosis Cancelled, Basophilic Stippling Cancelled, Anisocytosis Cancelled, Microcytosis Cancelled, Macrocytosis Cancelled, Spherocytes Cancelled, Sickle Cells Cancelled, Target Cells Cancelled, Tear Drop Cells Cancelled, Ovalocytes Cancelled, Stomatocytes Canc elled, [place] Bodies Cancelled, [place] Cells Cancelled, Bite Cells Cancelled, Crenated Cell Cancelled, Acanthocytes (Spur) Cancelled, Rouleaux Cancelled, Schistocytes Cancelled 10/28/22 16:40: Sodium Cancelled, Potassium Cancelled, Chloride Cancelled, Carbon Dioxide Cancelled, Anion Gap Cancelled, BUN Cancelled, Creatinine Cancelled, Estim Creat Clear Calc Cancelled, Est GFR (MDRD) Af Amer Cancelled, Est GFR (MDRD) Non-Af Cancelled, BUN/Creatinine Ratio Cancelled, Glucose Cancelled, Calcium Cancelled, Total Bilirubin Cancelled, AST Cancelled, ALT Cancelled, Alkaline Phosphatase Cancelled, Total Protein Cancelled, Albumin Cancelled, Globulin Cancelled, Albumin/Globulin Ratio Cancelled, Lipase Cancelled 10/28/22 16:40: Lactic Acid Cancelled 10/28/22 17:30: Sodium 134 L, Potassium 3.6, Chloride 104, Carbon Dioxide 24.0, Anion Gap 6, BUN 36 H, Creatinine 1.37 H, Estim Creat Clear Calc 61.68, Est GFR (MDRD) Af Amer 66, Est GFR (MDRD) Non-Af 55 L, BUN/Creatinine Ratio 26.3 H, Glucose 120 H, Calcium 7.3 L, Total Bilirubin 1.00, AST 35, ALT 49, Alkaline Phosphatase 166 H, Total Protein 6.0 L, Albumin 2.3 L, Globulin 3.7, Albumin/Globulin Ratio 0.6 L, Lipase 21 10/28/22 17:30: Lactic Acid 1.8 10/28/22 17:30: WBC 1.7 L, RBC 2.53 L, Hgb 6.2 L, Hct 20.2 L, MCV 79.8 L, MCH 24.5 L, MCHC 30.7 L, RDW Std Deviation 68.4 H, RDW Coeff of Cintia 24.3 H, Plt Count 111 L, MPV 10.4, Neut % (Auto) Not Reportable, Absolute Neuts (auto) 1.5 L , Absolute Lymphs (auto) 0.12 L, Total Counted 100, Neutrophils % (Manual) 81 H, Band Neutrophils % 8 H, Lymphocytes % (Manual) 7 L, Monocytes % (Manual) 3, Basophils % (Manual) 1, Diff Path Review November foll, Dohle Bodies 2+, Platelet Estimate SLT DEC, RBC Morphology N CHROM, Anisocytosis 2+, Microcytosis 1+, Ovalocytes 1+ Assessment & Plan Assessment/Plan (1) Bacteremia: PLAN: Plan #Sepsis likely urosepsis -Blood cultures growing gram-negative rods, now neutropenic, did have fever of 102.8 today in the ED and was tachycardic and slightly tachypneic -status post fluid boluses, responding well -Follow cultures, continue Zosyn -Less likely but cannot rule out GI cause given his diarrhea, will get enteric panel -Urine culture pending #Pancytopenia/anemia of unclear chronicity -Labs yesterday indicated white blood cell count of 4.8 now 1.7, hemoglobin was 7.6 now 6.2 and platelet count 228 now 111 -Likely due to chemo -No evidence of bleeding, 1 unit packed red blood cells ordered and to be given -No baseline hemoglobin in our system #Renal insufficiency -Unclear baseline, yesterday was 1.31 today is 1.37 Only other value was back in January 2022 when creatinine was 1.12 -Avoid nephrotoxic agents -Hydration #Bladder cancer -Bladder removal status post ileal conduit placed July 2022 at w/ Dr. Holden -F/w Dr. Masci for chemo here -Second chemo on #CHARI -CPAP nightly #DVT ppx: SCDs July Mckeon MD Time spent in the patient's overall evaluation,decision-making process, review of diagnostic data, adjustment of management, discussion with other providers, nursing nursing and ancillary staff involved in patient's care documentation, 60 minutes Charges/Coding Visit Charges Inpatient E&M: 35441 Init Hosp L2
[2022-10-28] MEDS: OLANZapine 10 MG Tablet PO (22:58)
[2022-10-29] VITALS (14 sets, daily range): BP systolic 118–135; BP diastolic 63–86; PULSE 92–104; RESP 15–18; TEMP 36.6–37.7; O2SAT 92–100; BMI 27.3
--- NOTE | 2022-10-29 02:32 | CPS ---
Pt has sores in his mouth. Does not wear cpap at home right now bc of it, does not want one here either. RN aware.
[2022-10-29 05:09] LABS: Hematocrit 22.9 % (40-54); Hemoglobin 7.1 g/dL (13.0-16.5); Mean Corpuscular Hgb 24.7 pg (27.0-32.0); Mean Corpuscular Volume 79.8 fL (80-94); Mean Platelet Vol. 9.5 fl (6.2-12.0); POSITIVE COUNT YES; POSITIVE DIFFERENTIAL YES; POSITIVE MORPHOLOGY YES; Platelet Count 104 K/mm3 (150-450); RBC Distribution Width CV 23.8 % (11.6-14.6); RBC Distribution Width SD 66.4 fl (35.1-43.9); Red Blood Count 2.87 M/mm3 (4.6-6.2); White Blood Count 1.8 K/mm3 (4.4-11.0)
[2022-10-29 05:24] LABS: ALB/GLOB Ratio 0.7 RATIO (0.9-2.4); AST(SGOT) 38 U/L (15-37); Alanine Aminotransfer ALT/SGPT 52 U/L (16-61); Albumin, Serum 2.5 g/dL (3.2-5.0); Alkaline Phosphatase 161 U/L (45-117); Anion Gap 7 (5-15); BUN 31 mg/dL (7-18); BUN/Creat Ratio 24.2 RATIO (10-20); Calcium,Total 7.2 mg/dL (8.5-10.1); Chloride 106 mmol/L (98-107); Creatinine, Serum 1.28 mg/dL (0.70-1.30); EST Glomerular Filtration Rate 59 mL/min (>60); Est Glom Filt Rate - Afr Amer 72 mL/min (>60); Estimated Creatinine Clearance 66.02 ml/min; Globulin 3.6 g/dL (2.2-4.2); Glucose 116 mg/dL (74-106); Potassium 3.4 mmol/L (3.5-5.1); Protein, Total 6.1 g/dL (6.4-8.2); Sodium Level 135 mmol/L (136-145)
[2022-10-29 05:38] LABS: Differential Indicated MANUAL DIFF
[2022-10-29 05:53] LABS: Myelocyte 1 % (0-0); Neutrophil-Segmented 71 % (47-70); Total Cells Counted 100 (MANUAL DIFF)
[2022-10-29 05:54] LABS: Lymphocyte 14 % (19-41); Metamyelocyte 2 % (0-1); Neutrophil-Band 7 % (0-5); Platelet Estimate SLT DEC (ADEQ)
[2022-10-29 05:57] LABS: Anisocytosis 2+; Hypochromasia 1+; Macrocytosis 1+; Microcytosis 1+; Monocyte 5 % (0-10)
[2022-10-29 05:58] LABS: Absolute Lymphocyte Count 0.25 X10^3/uL (0.83-4.51); Absolute Neutrophil Count 1.4 X10^3/uL (2.0-7.7); Lymphocyte # 0.25 X10^3/ul (0.83-4.51)
[2022-10-29 08:21] LABS: Magnesium 1.2 mg/dL (1.6-2.6)
[2022-10-29] MEDS: 0.9% Normal Saline 1,000 ML 150 ML IV (09:00)
--- NOTE | 2022-10-29 09:40 | CASEMGMT ---
YANA BARBOSA Face to Face with patient for initial transition planning/care coordination assessment. RN CM introduced self and role at [facility]. Patient sitting edge of bed, alert and oriented, at bedside. Patient willing to participate in assessment and is able to answer all questions appropriately. Care providers, pharmacy, and demographics verified. Patient wishes to discharge home, denies need for home health at this time. Patient states he has no further needs or concerns at this time. CM to follow for discharge planning needs that may arise. PCP: Michele SENIOR JAVASCRIPT ENGINEER Specialists: Cary, oncologist; Basali, pain Preferred Pharmacy: [facility] Insurance: [facility] [place] Pres[place] Benefit: yes Living Will/HPOA: none LNOK: Living Arrangements: Patient lives with in a single story home with 2 steps to enter the home. Patient states he is independent at home. Transportation: self, DME/HHC: Patient states he has built in shower chair, raised toilet, cane, walker, grab bars, cpap with 2lpm bleed through [employer]. [facility]. Disposition Plan: Patient to discharge home with family support and follow-up plans in place. Pauline SHEA, RN, CM
[2022-10-29] MEDS: Pantoprazole Sodium 20 MG Tablet PO (10:46)
[2022-10-29] MEDS: Magnesium Chloride 64 MG Delay Rel.Tablet PO ×2 (10:46→22:25)
[2022-10-29] MEDS: Metoprolol Tartrate 25 MG Tablet 12.5 MG PO ×2 (11:36→22:24)
[2022-10-29] MEDS: Potassium Chloride Oral Tablet 20 MEQ 40 MEQ PO (11:42)
--- NOTE | 2022-10-29 12:19 | PCM.PN.HOSP ---
Reason for Visit Reason for Visit: Diagnoses Bacteremia (10/28/22) Subjective Subjective Reports feeling better today but still does appear somewhat unwell Objective Data Objective Data Vital Signs: Vital Signs Temp Pulse Resp BP Pulse Ox O2 Del Method O2 Flow Rate 98.8 F 98 18 133/84 H 97 Room Air 2 10/29/22 08:03 10/29/22 11:36 10/29/22 08:03 10/29/22 11:36 10/29/22 10:00 10/29/22 10:00 10/29/22 04:00 Oxygen Flow Rate (L/min) 2 Oxygen Delivery Method Room Air Weight: 99.4 kg Body Mass Index (BMI) 27.3 Intake & Output: Intake and Output for Last 24 Hours 10/27/22 10/28/22 10/29/22 23:59 23:59 23:59 Intake Total 1100 / 1100 1500 / 1500 Balance 1100 / 1100 1500 / 1500 Lab / Micro Data Result Diagrams: 10/29/22 04:58 10/29/22 04:58 Labs: Laboratory Results - last 24 hr 10/28/22 16:40: WBC Cancelled, Corrected WBC Cancelled, RBC Cancelled, Hgb Cancelled, Hct Cancelled, MCV Cancelled, MCH Cancelled, MCHC Cancelled, RDW Std Deviation Cancelled, RDW Coeff of Cintia Cancelled, Plt Count Cancelled, MPV Cancelled, Immature Gran % (Auto) Cancelled, Neut % (Auto) Cancelled, Lymph % (Auto) Cancelled, [place] % (Auto) Cancelled, Eos % (Auto) Cancelled, Baso % (Auto) Cancelled, Absolute Neuts (auto) Cancelled, Absolute Lymphs (auto) Cancelled, Total Counted Cancelled, Neutrophils % (Manual) Cancelled, Band Neutrophils % Cancelled, Lymphocytes % (Manual) Cancelled, Monocytes % (Manual) Cancelled, Eosinophils % (Manual) Cancelled, Basophils % (Manual) Cancelled, Metamyelocytes % Cancelled, Myelocytes % Cancelled, Promyelocytes % Cancelled, Blast Cells % Cancelled, Plasma Cell % (Manual) Cancelled, Other Cells % Cancelled, Nucleated RBC % Cancelled, Nucleated RBCs/100 WBC Cancelled, Differential Comment Cancelled, Diff Path Review Cancelled, Hypersegmented Neuts Cancelled, Atypical Lymphocytes Cancelled, Reactive Lymphocytes Cancelled, Smudge Cells Cancelled, Toxic Granulation Cancelled, Toxic Vacuolation Cancelled, Dohle Bodies Cancelled, Kalpana Rods Cancelled, Platelet Estimate Cancelled, Plt Morphology Comment Cancelled, RBC Morphology Cancelled, Polychromasia Cancelled, Hypochromasia Cancelled, Poikilocytosis Cancelled, Basophilic Stippling Cancelled, Anisocytosis Cancelled, Microcytosis Cancelled, Macrocytosis Cancelled, Spherocytes Cancelled, Sickle Cells Cancelled, Target Cells Cancelled, Tear Drop Cells Cancelled, Ovalocytes Cancelled, Stomatocytes Cancelled, [place] [place] [place] Bodies Cancelled, [place] Cells Cancelled, Bite Cells Cancelled, Crenated Cell Cancelled, Acanthocytes (Spur) Cancelled, Rouleaux Cancelled, Schistocytes Cancelled 10/28/22 16:40: Sodium Cancelled, Potassium Cancelled, Chloride Cancelled, Carbon Dioxide Cancelled, Anion Gap Cancelled, BUN Cancelled, Creatinine Cancelled, Estim Creat Clear Calc Cancelled, Est GFR (MDRD) Af Amer Cancelled, Est GFR (MDRD) Non-Af Cancelled, BUN/Creatinine Ratio Cancelled, Glucose Cancelled, Calcium Cancelled, Total Bilirubin Cancelled, AST Cancelled, ALT Cancelled, Alkaline Phosphatase Cancelled, Total Protein Cancelled, Albumin Cancelled, Globulin Cancelled, Albumin/Globulin Ratio Cancelled, Lipase Cancelled 10/28/22 16:40: Lactic Acid Cancelled 10/28/22 17:30: Sodium 134 L, Potassium 3.6, Chloride 104, Carbon Dioxide 24.0, Anion Gap 6, BUN 36 H, Creatinine 1.37 H, Estim Creat Clear Calc 61.68, Est GFR (MDRD) Af Amer 66, Est GFR (MDRD) Non-Af 55 L, BUN/Creatinine Ratio 26.3 H, Glucose 120 H, Calcium 7.3 L, Total Bilirubin 1.00, AST 35, ALT 49, Alkaline Phosphatase 166 H, Total Protein 6.0 L, Albumin 2.3 L, Globulin 3.7, Albumin/Globulin Ratio 0.6 L, Lipase 21 10/28/22 17:30: Lactic Acid 1.8 10/28/22 17:30: WBC 1.7 L, RBC 2.53 L, Hgb 6.2 L, Hct 20.2 L, MCV 79.8 L, MCH 24.5 L, MCHC 30.7 L, RDW Std Deviation 68.4 H, RDW Coeff of Cintia 24.3 H, Plt Count 111 L, MPV 10.4, Neut % (Auto) Not Reportable, Absolute Neuts (auto) 1.5 L, Absolute Lymphs (auto) 0.12 L, Total Counted 100, Neutrophils % (Manual) 81 H, Band Neutrophils % 8 H, Lymphocytes % (Manual) 7 L, Monocytes % (Manual) 3, Basophils % (Manual) 1, Diff Path Review May shayne, Dohle Bodies 2+, Platelet Estimate SLT DEC, RBC Morphology N CHROM, Anisocytosis 2+, Microcytosis 1+, Ovalocytes 1+ 10/28/22 20:30: Blood Type O POSITIVE, Antibody Screen NEGATIVE 10/28/22 20:30: Crossmatch See Detail 10/29/22 04:58: WBC 1.8 L, RBC 2.87 L, Hgb 7.1 L, Hct 22.9 L, MCV 79.8 L, MCH 24.7 L, MCHC 31.0 L, RDW Std Deviation 66.4 H, RDW Coeff of Cintia 23.8 H, Plt Count 104 L, MPV 9.5, Neut % (Auto) Not Reportable, Absolute Neuts (auto) 1.4 L, Absolute Lymphs (auto) 0.25 L, Total Counted 100, Neutrophils % (Manual) 71 H, Band Neutrophils % 7 H, Lymphocytes % (Manual) 14 L, Monocytes % (Manual) 5, Metamyelocytes % 2 H, Myelocytes % 1 H, Diff Path Review May shayne, Platelet Estimate SLT DEC, Hypochromasia 1+, Anisocytosis 2+, Microcytosis 1+, Macrocytosis 1+ 10/29/22 04:58: Sodium 135 L, Potassium 3.4 L, Chloride 106, Carbon Dioxide 22.0, Anion Gap 7, BUN 31 H, Creatinine 1.28, Estim Creat Clear Calc 66.02, Est GFR (MDRD) Af Amer 72, Est GFR (MDRD) Non-Af 59 L, BUN/Creatinine Ratio 24.2 H, Glucose 116 H, Calcium 7.2 L, Total Bilirubin 1.10 H, AST 38 H, ALT 52, Alkaline Phosphatase 161 H, Total Protein 6.1 L, Albumin 2.5 L, Globulin 3.6, Albumin/Globulin Ratio 0.7 L 10/29/22 04:58: Magnesium 1.2 L Micro: Microbiology 10/28/22 19:39 Stool Enteric Bacteriology - Final Physical Exam Narrative General: Alert, oriented, no apparent distress HEENT: Atraumatic, normocephalic Eyes: Anicteric, normal conjunctiva, extraocular movements grossly intact Neck: Supple Respiratory: Possibly some slight crackles in right base, normal respiratory effort Cardiovascular: Regular rate and rhythm GI: Soft, nontender, nondistended, urostomy bag in place Extremities: No edema Musculoskeletal: Moving all extremities Neuro: No overt focal neurological deficits Skin: No rashes appreciated Psych: Cooperative Assessment & Plan Assessment/Plan (1) Bacteremia: PLAN: Plan #Sepsis likely secondary to urinary tract infection as well as positive rhinovirus -Blood cultures growing gram-negative rods, now neutropenic, did have fever of 102.8 today in the ED and was tachycardic and slightly tachypneic -status post fluid boluses, responding well -Follow cultures, continue Zosyn -Less likely but cannot rule out GI cause given his diarrhea, will get enteric panel -Urine culture pending -10/29: Rhinovirus came back positive, stool studies pending, 1 out of 2 blood cultures growing gram-negative rods and urine culture now also growing gram-negative rods. Continue Zosyn and await speciation #Pancytopenia/anemia of unclear chronicity -Labs yesterday indicated white blood cell count of 4.8 now 1.7, hemoglobin was 7.6 now 6.2 and platelet count 228 now 111 -Likely due to chemo -No evidence of bleeding, 1 unit packed red blood cells ordered and to be given -No baseline hemoglobin in our system -10/29: Hemoglobin 7.1 today, remains pancytopenic. Continue supportive care and transfuse for hemoglobin less than 7 #Renal insufficiency -Unclear baseline, yesterday was 1.31 today is 1.37 Only other value was back in January 2022 when creatinine was 1.12 -Avoid nephrotoxic agents -Hydration -10/29: Had been receiving continuous fluids, improving, will hold maintenance fluids at this time and can resume pending progress #Bladder cancer -Bladder removal status post ileal conduit placed July 2022 at w/ Dr. Holden -F/w Dr. Townsend for chemo here -Second chemo on last #CHARI -CPAP nightly #DVT ppx: SCDs July Mckeon MD Time spent in the patient's overall evaluation,decision-making process, review of diagnostic data, adjustment of management, discussion with other providers, nursing nursing and ancillary staff involved in patient's care documentation, 30 minutes Charges/Coding Visit Charges Inpatient E&M: 04492 Subs Hosp L2
[2022-10-29] MEDS: Magnesium Sulfate 4gm/100mL 4 GM/100 ML IV.SOLN. IV (14:12)
[2022-10-29] MEDS: Loperamide 2 MG Capsule 4 MG PO (15:23)
[2022-10-29] MEDS: Loperamide 2 MG Capsule PO (19:59)
[2022-10-29] MEDS: OLANZapine 10 MG Tablet PO (22:28)
[2022-10-30] MEDS: Loperamide 2 MG Capsule PO ×3 (01:00→10:17)
--- NOTE | 2022-10-30 02:00 | NURSING ---
Pt states urostomy bag was leaking, this RN looked at the urostomy bag and saw no leaks. This RN offered to change bag for the pt, but pt refused and insisted the will change the bag in the morning when she arrvies.
[2022-10-30 03:00] VITALS: BP 117/66; PULSE 100; RESP 17; TEMP 36.7; O2SAT 94
[2022-10-30 06:44] LABS: Absolute Lymphocyte Count 0.41 X10^3/uL (0.83-4.51); Absolute Neutrophil Count 0.7 X10^3/uL (2.0-7.7); Basophil# 0.02 X10^3/uL; Basophil% 1.5 % (0-1); Hematocrit 22.6 % (40-54); Lymphocyte # 0.41 X10^3/ul (0.83-4.51); Lymphocyte % 30.8 % (19-41); Mean Corpuscular Hgb 24.9 pg (27.0-32.0); Mean Corpuscular Volume 80.4 fL (80-94); Monocyte# 0.21 X10^3/uL; Monocyte% 15.8 % (0-10); NRBC Flagged by Analyzer 0 % (0-5); Neutrophil # 0.67 X10^3/uL (2.7-7.7); Neutrophil % 50.4 % (47-70); POSITIVE COUNT YES; POSITIVE DIFFERENTIAL YES; POSITIVE MORPHOLOGY YES; Platelet Count 60 K/mm3 (150-450); RBC Distribution Width CV 23.5 % (11.6-14.6); RBC Distribution Width SD 66.6 fl (35.1-43.9); Red Blood Count 2.81 M/mm3 (4.6-6.2)
[2022-10-30 06:52] LABS: Differential Indicated SCAN CRITERIA MET; White Blood Count 1.3 K/mm3 (4.4-11.0)
[2022-10-30 06:59] LABS: ALB/GLOB Ratio 0.6 RATIO (0.9-2.4); AST(SGOT) 36 U/L (15-37); Alanine Aminotransfer ALT/SGPT 49 U/L (16-61); Albumin, Serum 2.3 g/dL (3.2-5.0); Alkaline Phosphatase 167 U/L (45-117); Anion Gap 9 (5-15); BUN 25 mg/dL (7-18); BUN/Creat Ratio 20.3 RATIO (10-20); Calcium,Total 7.3 mg/dL (8.5-10.1); Chloride 108 mmol/L (98-107); Creatinine, Serum 1.23 mg/dL (0.70-1.30); EST Glomerular Filtration Rate 62 mL/min (>60); Est Glom Filt Rate - Afr Amer 75 mL/min (>60); Globulin 3.8 g/dL (2.2-4.2); Glucose 105 mg/dL (74-106); Magnesium 1.7 mg/dL (1.6-2.6); Potassium 3.3 mmol/L (3.5-5.1); Protein, Total 6.1 g/dL (6.4-8.2); Sodium Level 139 mmol/L (136-145)
[2022-10-30 07:04] LABS: Anisocytosis 2+; Differential Comment SCANNED; Hypochromasia 2+; Microcytosis 2+; Schistocytes RARE
[2022-10-30 09:00] VITALS: BP 118/72; PULSE 97; RESP 18; TEMP 37.3; O2SAT 96
[2022-10-30 09:36] VITALS: O2SAT 94
[2022-10-30 10:17] VITALS: BP 114/72; PULSE 97
[2022-10-30] MEDS: Metoprolol Tartrate 25 MG Tablet PO (10:17)
[2022-10-30] MEDS: Potassium Chloride Oral Tablet 20 MEQ PO ×2 (10:17)
[2022-10-30] MEDS: Magnesium Chloride 64 MG Delay Rel.Tablet PO (10:17)
[2022-10-30] MEDS: Pantoprazole Sodium 20 MG Tablet PO (10:17)
[2022-10-30] MEDS: levoFLOXacin 750 MG Tablet PO (11:21)
[2022-10-30] MEDS: 0.9% Saline Lock 10 ML Syringe IV (11:21)
[2022-10-30] MEDS: TBO-FILGRASTIM 480 MCG/0.8 ML ML SC (11:21)
--- NOTE | 2022-10-30 11:40 | PCM.DC ---
Discharge Instructions Diet Discharge Diet: No restrictions Activity Discharge Activity: Return to Normal Activity Follow Up Care Test Results: Test results from this visit will be discussed in further detail at your follow-up appointment, if applicable. Discharge Plan Admission Admit Date/Time: 10/28/22 19:34 Primary Reason for Your Visit: Positive blood cultures Attending Provider: July Mckeon Primary Care Provider: Claudia Bautista RETAIL ADMINISTRATIVE ASSISTANT Instructions Patient Instructions: Cancer: Managing Fatigue, Cancer: Preventing Infections Additional Instructions / Restrictions: DISCHARGE INSTRUCTIONS PLEASE READ *Please take this with you to your next doctors appointment* -You will take levofloxacin 750 mg daily for another 7 days with your next dose 10/31 -You have been having diarrhea, your stool studies did not reveal any infectious etiology see you will be discharged with a prescription for as needed loperamide -You have also been started on metoprolol tartrate 25 mg twice daily for your fast heart rate. A new prescription will be sent to [facility] retail pharmacy -Please hold your indapamide, water pill, for 2 days as you have been having diarrhea and have required fluids -Would recommend lab work (CBC and BMP) to check your blood counts and your potassium and kidney function in 2 to 3 days through your primary care physician's office or your oncologist's office. Please call their office upon discharge to obtain order for lab work. -You had repeat blood cultures obtained, 1 through your port and 1 not from your port, prior to discharge to evaluate any infection that may be in your port. The results are pending at the time of discharge -Follow-up with Dr. Townsend next week as previously scheduled, you have indicated that this is on Thursday. It will be important that you make this appointment -Please call your primary care provider's office upon discharge to schedule a hospital follow up within 1 week. -For any concerning signs or symptoms please call 911 or proceed to the nearest emergency department Discharge Orders/Prescriptions Prescriptions: New levofloxacin 750 mg Tablet 750 mg PO DAILY 7 Days Qty: 7 0RF loperamide 2 mg Capsule 2 mg PO Q4H PRN PRN (Reason: diarrhea) 5 Days Qty: 30 0RF metoprolol tartrate 25 mg Tablet 25 mg PO BID 30 Days Qty: 60 0RF Continued cinacalcet 30 mg tablet 30 mg PO BID hydrocodone-acetaminophen 7.5-325 mg Tablet 1 tab PO Q6H PRN (Reason: PAIN ) omeprazole 20 mg Tablet,Disintegrat, Delay Rel 20 mg PO DAILY potassium chloride 20 mEq tablet,ER particles/crystals 20 meq PO DAILY docusate sodium 100 mg Capsule 100 mg PO BID folic acid 1 mg tablet 1 mg PO DAILY loratadine [Claritin] 10 mg Tablet 10 mg PO DAILY cholecalciferol (vitamin D3) [Vitamin D3] 125 mcg (5,000 unit) Tablet 125 mcg PO DAILY magnesium chloride 64 mg Tablet,Delayed Release (Dr/Ec) 64 mg PO BID enalapril maleate 5 mg tablet 5 mg PO DAILY Held indapamide 2.5 mg Tablet 2.5 mg PO DAILY Hold Instructions: Resume on 11/02/22. Discontinued olanzapine 10 mg tablet 10 mg PO QHS Referrals / Follow Up: Aristides Townsend DO [Med Staff - Active Staff] - See Referral Note (Follow-up with Dr. Townsend next week as previously scheduled, you have indicated that this is on Thursday. It will be important that you make this appointment) Claudia Bautista RETAIL ADMINISTRATIVE ASSISTANT, RETAIL ADMINISTRATIVE ASSISTANT-C [Primary Care Provider] - Within 1 Week Disposition Disposition (needs filled in before D/C Order can be placed): Home, Self Care
--- NOTE | 2022-10-30 11:44 | PCM.DC.SUM ---
Providers Date of Admission: 10/28/22 Date of Discharge: 10/30/22 Primary Care Physician: ZOE Rodriguez Reason For Visit: BACTEREMIA Diagnosis Discharge Diagnosis (1) Bacteremia: Status: Acute Code(s): R78.81 - Bacteremia Plan #Sepsis likely secondary to urinary tract infection as well as positive rhinovirus #Pancytopenia/anemia of unclear chronicity #Renal insufficiency #Bladder cancer #CHARI Medications at Discharge Home Medications hydrocodone 7.5 mg-acetaminophen 325 mg tablet 1 tab PO Q6H PRN PAIN 01/21/22 indapamide 2.5 mg tablet 2.5 mg PO DAILY FLUID 01/21/22 omeprazole 20 mg delayed release,disintegrating tablet 20 mg PO DAILY ACID REFLUX 01/21/22 cinacalcet 30 mg tablet 30 mg PO BID 03/11/22 cholecalciferol (vitamin D3) 125 mcg (5,000 unit) tablet (Vitamin D3) 125 mcg PO DAILY SUPPLEMENT 10/28/22 docusate sodium 100 mg capsule 100 mg PO BID CONSTIPATION 10/28/22 enalapril maleate 5 mg tablet 5 mg PO DAILY BLOOD PRESSURE 10/28/22 folic acid 1 mg tablet 1 mg PO DAILY SUPPLEMENT 10/28/22 loratadine 10 mg tablet (Claritin) 10 mg PO DAILY TAKEN DURING CHEMO 10/28/22 magnesium chloride 64 mg (magnesium chloride) tablet,delayed release 64 mg PO BID SUPPLEMENT 10/28/22 potassium chloride 20 mEq tablet,extended release(part/cryst) 20 meq PO DAILY SUPPLEMENT 10/28/22 levofloxacin 750 mg tablet 750 mg PO DAILY 7 days #7 tabs 10/30/22 loperamide 2 mg capsule 2 mg PO Q4H PRN PRN diarrhea 5 days #30 caps 10/30/22 metoprolol tartrate 25 mg tablet 25 mg PO BID 30 days #60 tabs 10/30/22 Hospital Course Summary of Care Provided Minutes Spent on Discharge: 36 Hospital Course: MARIAN ZIMMERMAN, is a 67 M with history of bladder cancer with urostomy, mild COPD, CHARI who presented to [facility] [place] originally 10/27 for fever and weakness.? He had fever for about 1 week after chemotherapy.? Chest x-ray at that time with some chronic changes but no acute infiltrate, white blood cell count 4.8 with normal neutrophil count, was anemic at 7.6.? Creatinine was 1.31 and he was given some fluids.? UA had showed some suspicious signs of infection but had ileal conduit and culture was pended.? It was discussed with his oncologist and given his improvement with IV fluids and patient's desire to go home he was placed on Levaquin and discharged however his blood cultures were found to be positive for gram-negative rods so he was called back to the emergency room.? In the ED he was pancytopenic and hemoglobin was 6.2.? He was slightly tachycardic and febrile but returned when he was called about a positive blood cx. He had been feeling better overall but had some diarrhea in the AM. He was given fluids, abx, 1uprbc and hospitalist called for admission. Blood cultures grew ecoli and he was also found to have rhinovirus. GI panel negative. He remained pancytopenic so his oncologist was contacted. It was recommended he start filgastrim 480mcg subq until his appt early in the week and that he was okay to d/c on levaquin with close outpt follow up. It was also recommended he have blood cultures drawn both through the port and through the periphery so it can be verified cx does not become postive through the port as that would necessitate removal. Cx drawn. Attempted to get filgastrim for outpt until his appt with Dr. Townsend but after trying multiple scripts and multiple pharmacies unable to acquire affordable script in a timely manner. Discussed with Dr. Townsend who felt the dose he recieved was adequate for the time and okay to d/c with outpt follow up. On day of discharge pt reports diarrhea is improving and he is feeling better overall. D/c instructions as followed: -You will take levofloxacin 750 mg daily for another 7 days with your next dose 10/31 -You have been having diarrhea, your stool studies did not reveal any infectious etiology see you will be discharged with a prescription for as needed loperamide -You have also been started on metoprolol tartrate 25 mg twice daily for your fast heart rate.? A new prescription will be sent to [facility] [place] retail pharmacy -Please hold your indapamide, water pill, for 2 days as you have been having diarrhea and have required fluids -Would recommend lab work (CBC and BMP) to check your blood counts and your potassium and kidney function in 2 to 3 days through your primary care physician's office or your oncologist's office.? Please call their office upon discharge to obtain order for lab work. -You had repeat blood cultures obtained, 1 through your port and 1 not from your port, prior to discharge to evaluate any infection that may be in your port.? The results are pending at the time of discharge -Follow-up with Dr. Townsend next week as previously scheduled, you have indicated that this is on Thursday. It will be important that you make this appointment -Please call your primary care provider's office upon discharge to schedule a hospital follow up within 1 week. -For any concerning signs or symptoms please call 911 or proceed to the nearest emergency department Physical Exam Narrative General: Alert, oriented, no apparent distress HEENT: Atraumatic, normocephalic Eyes: Anicteric, normal conjunctiva, extraocular movements grossly intact Neck: Supple Respiratory: normal respiratory effort Cardiovascular: Regular rate and rhythm GI: Soft, nontender, nondistended, urostomy bag in place Extremities: No edema Musculoskeletal: Moving all extremities Neuro: No overt focal neurological deficits Skin: No rashes appreciated Psych: Cooperative Weight / BMI Weight Weight: 99.4 kg Body Mass Index (BMI) 27.3 ABG / Lab / Microbiology Data Result Diagrams: 10/30/22 06:15 10/30/22 06:15 Laboratory: Laboratory Results - last 24 hr 10/30/22 06:15: WBC 1.3 L*, RBC 2.81 L, Hgb 7.0 L, Hct 22.6 L, MCV 80.4, MCH 24.9 L, MCHC 31.0 L, RDW Std Deviation 66.6 H, RDW Coeff of Cintia 23.5 H, Plt Count 60 L, MPV TNP, Immature Gran % (Auto) 1.500 H, Neut % (Auto) 50.4, Lymph % (Auto) 30.8, [place] % (Auto) 15.8 H, Eos % (Auto) 0.0, Baso % (Auto) 1.5 H, Absolute Neuts (auto) 0.7 L, Absolute Lymphs (auto) 0.41 L, Nucleated RBC % 0, Differential Comment SCANNED, Diff Path Review May foll, Hypochromasia 2+, Anisocytosis 2+, Microcytosis 2+, Schistocytes RARE 10/30/22 06:15: Sodium 139, Potassium 3.3 L, Chloride 108 H, Carbon Dioxide 22.0, Anion Gap 9, BUN 25 H, Creatinine 1.23, Estim Creat Clear Calc 68.70, Est GFR (MDRD) Af Amer 75, Est GFR (MDRD) Non-Af 62, BUN/Creatinine Ratio 20.3 H, Glucose 105, Calcium 7.3 L, Magnesium 1.7, Total Bilirubin 0.80, AST 36, ALT 49, Alkaline Phosphatase 167 H, Total Protein 6.1 L, Albumin 2.3 L, Globulin 3.8, Albumin/Globulin Ratio 0.6 L Microbiology: Microbiology 10/28/22 19:39 Stool C. difficile DNA Amplification - Final 10/28/22 19:39 Stool Enteric Bacteriology - Final D/C Instructions Discharge Diet: No restrictions Meaningful Use Info Meaningful Use Diagnoses (Choose all that apply): None applicable Discharge Plan Admission Admit Date/Time: 10/28/22 19:34 Primary Reason for Your Visit: Positive blood cultures Attending Provider: July Mckeon Primary Care Provider: Claudia Bautista NP Instructions Patient Instructions: Cancer: Managing Fatigue, Cancer: Preventing Infections Additional Instructions / Restrictions: DISCHARGE INSTRUCTIONS PLEASE READ *Please take this with you to your next doctors appointment* -You will take levofloxacin 750 mg daily for another 7 days with your next dose 10/31 -You have been having diarrhea, your stool studies did not reveal any infectious etiology see you will be discharged with a prescription for as needed loperamide -You have also been started on metoprolol tartrate 25 mg twice daily for your fast heart rate. A new prescription will be sent to [facility] [place] retail pharmacy -Please hold your indapamide, water pill, for 2 days as you have been having diarrhea and have required fluids -Would recommend lab work (CBC and BMP) to check your blood counts and your potassium and kidney function in 2 to 3 days through your primary care physician's office or your oncologist's office. Please call their office upon discharge to obtain order for lab work. -You had repeat blood cultures obtained, 1 through your port and 1 not from your port, prior to discharge to evaluate any infection that may be in your port. The results are pending at the time of discharge -Follow-up with Dr. Townsend next week as previously scheduled, you have indicated that this is on Thursday. It will be important that you make this appointment -Please call your primary care provider's office upon discharge to schedule a hospital follow up within 1 week. -For any concerning signs or symptoms please call 911 or proceed to the nearest emergency department Discharge Orders/Prescriptions Prescriptions: New levofloxacin 750 mg Tablet 750 mg PO DAILY 7 Days Qty: 7 0RF loperamide 2 mg Capsule 2 mg PO Q4H PRN PRN (Reason: diarrhea) 5 Days Qty: 30 0RF metoprolol tartrate 25 mg Tablet 25 mg PO BID 30 Days Qty: 60 0RF Continued cinacalcet 30 mg tablet 30 mg PO BID hydrocodone-acetaminophen 7.5-325 mg Tablet 1 tab PO Q6H PRN (Reason: PAIN ) omeprazole 20 mg Tablet,Disintegrat, Delay Rel 20 mg PO DAILY potassium chloride 20 mEq tablet,ER particles/crystals 20 meq PO DAILY docusate sodium 100 mg Capsule 100 mg PO BID folic acid 1 mg tablet 1 mg PO DAILY loratadine [Claritin] 10 mg Tablet 10 mg PO DAILY cholecalciferol (vitamin D3) [Vitamin D3] 125 mcg (5,000 unit) Tablet 125 mcg PO DAILY magnesium chloride 64 mg Tablet,Delayed Release (Dr/Ec) 64 mg PO BID enalapril maleate 5 mg tablet 5 mg PO DAILY Held indapamide 2.5 mg Tablet 2.5 mg PO DAILY Hold Instructions: Resume on 11/02/22. Discontinued olanzapine 10 mg tablet 10 mg PO QHS Referrals / Follow Up: Aristides Townsend DO [Med Staff - Active Staff] - See Referral Note (Follow-up with Dr. Townsend next week as previously scheduled, you have indicated that this is on Thursday. It will be important that you make this appointment) Claudia Bautista LANDSCAPE DESIGNER, LANDSCAPE DESIGNER-C [Primary Care Provider] - Within 1 Week Disposition Disposition (needs filled in before D/C Order can be placed): Home, Self Care Charges/Coding Visit Charges Inpatient E&M: 71796 Disch Hosp >30min
--- NOTE | 2022-10-30 11:58 | CASEMGMT ---
Addendum entered by Jessica Monaco 10/30/22 15:15: Call received from Dr Mckeon, who states she spoke w/Dr Townsend. Dr Mckeon states she is cancelling the Rx for Zarxio and pt can discharge home today. Pt to f/u with Dr Townsend on Thursday. YANA BARBOSA to room. Pt and both notified. Per Zoya @ [facility] Retail pharmacy, they were unable to fill the rx for Levaquin d/t it is too early since he last picked up a rx for Levaquin. Pt and made aware. states pt has 4 tablets of Levaquin @ home. and pt made aware, if they wish to pick the Levaquin up @ [facility] in [place], to call [facility] when ready to slate picker remainder of Levaquin to have rx transferred from [facility] retail pharmacy. They voice understanding. Addendum entered by Jessica Monaco 10/30/22 14:49: Call placed back to [facility] and spoke w/Candace. She states the PA was denied for the Granix d/t other medications in formulary have not been tried yet. Per Candace the following medications are listed as equivalent to the Granix and they are In-formulary. Both of the following do also require a PA. Zarxio SQ and Ziextenzo SQ. Per Zoya @ [facility] Retail pharmacy, they are unable to order Zarxio, as it is not available from any of their suppliers. Call placed to [facility] in [place] and spoke to Otf. He states they are able to order it, but the earliest it would be available is tomorrow. They will not order it unless PA is received. Dr Mckeon made aware of above and she has e-scribed the Zarxio to [facility]. Original Note: YANA BARBOSA NOTE: Granix has been e-scribed to [facility] retail pharmacy. Per Zoya, this is not in formulary. Call placed to [facility] and spoke w/Rosalba. Per Rosalba, PA is required. Call placed to [facility] @ [phone]. PA request submitted via [employer] [facility] w/request for review to be expedited, as pt is discharging home today. Call placed to Mary Beth @ [facility] later in the day. She states approval is still in progress , but that she would be able to provide an emergency 5-day supply of Granix for pt so pt can get the medication today. Call placed to Zoya @ [facility] retail pharmacy and she was made aware. She ran Granix through insurance and it went through, but pt's co-pay is $1,259.79. She states they will get pt's other discharge meds ready and will deliver them to pt's room. Cuco HERRINGN RN CM
[2022-10-30 13:06] LABS: Pathologist Review Reviewed
[2022-10-30 13:11] LABS: Pathologist Review Reviewed
[2022-10-30 15:48] VITALS: BP 117/73; PULSE 84; RESP 18; TEMP 37.1; O2SAT 98
== END 2022-10-30 14:14 | disposition home or self-care (01) | DRG 698 ==
LOC: ED 16:15 → PCU 19:48
PROVIDERS: Admitting Provider Internal Medicine; Emergency Provider Emergency Medicine; PCP Nurse Practitioner Family; Visit Provider Internal Medicine
DX: T83.511A Infection and inflammatory reaction due to indwelling urethral catheter, initial encounter (principal); A41.9 Sepsis, unspecified organism; D61.810 Antineoplastic chemotherapy induced pancytopenia; C67.9 Malignant neoplasm of bladder, unspecified; E11.9 Type 2 diabetes mellitus without complications; B96.20 Unspecified Escherichia coli [E. coli] as the cause of diseases classified elsewhere; B97.89 Other viral agents as the cause of diseases classified elsewhere; J44.9 Chronic obstructive pulmonary disease, unspecified; Z93.6 Other artificial openings of urinary tract status; I10 Essential (primary) hypertension; G47.33 Obstructive sleep apnea (adult) (pediatric); R19.7 Diarrhea, unspecified; F17.210 Nicotine dependence, cigarettes, uncomplicated; N39.0 Urinary tract infection, site not specified; T45.1X5A Adverse effect of antineoplastic and immunosuppressive drugs, initial encounter; Y84.6 Urinary catheterization as the cause of abnormal reaction of the patient, or of later complication, without mention of misadventure at the time of the procedure; Z79.84 Long term (current) use of oral hypoglycemic drugs; Z79.899 Other long term (current) drug therapy
CPT/HCPCS: 36415; 36591; 71045; 80053; 81001; 83605; 83690; 83735; 85025; 85610; 85730; 86850; 86900; 86901; 86920; 86922; 87040; 87077; 87086; 87088; 87186; 87428; 87493; 87506; 87633; 94762; 96361; 96365; 96366; 99283; 99284; J7030; J7040; P9016; A4216; J1447

== ENCOUNTER → 2023-02-23 | Outpatient (CLI) | payer MEDICARE, OTHER, SELFPAY ==
[2023-02-23 10:33] LABS: Amphetamine Urine VISTA NEGATIVE (<1000 ng/mL); Barbiturate Urine VISTA NEGATIVE (< 200 ng/mL); Benzodiazepine Urine VISTA NEGATIVE (< 200 ng/mL); Cocaine Urine VISTA NEGATIVE (< 300 ng/mL); Ecstacy Urine VISTA NEGATIVE (< 500 ng/mL); Methadone Urine VISTA NEGATIVE (< 300 ng/mL); PCP Urine VISTA NEGATIVE (< 25 ng/mL); THC Urine VISTA NEGATIVE (< 50 ng/mL); Vista UDS pH Range 6
== END | disposition home or self-care (01) ==
LOC: LAB 09:43
PROVIDERS: PCP Nurse Practitioner Family; Referring Provider Anesthesiology Pain Medicine; Visit Provider Anesthesiology Pain Medicine
DX: F11.20 Opioid dependence, uncomplicated (principal)
CPT/HCPCS: 80307

== ENCOUNTER → 2024-04-18 | Outpatient (CLI) | payer MEDICARE, OTHER, SELFPAY ==
[2024-04-18 10:41] LABS: Amphetamine Urine VISTA NEGATIVE (<1000 ng/mL); Barbiturate Urine VISTA NEGATIVE (< 200 ng/mL); Benzodiazepine Urine VISTA NEGATIVE (< 200 ng/mL); Cocaine Urine VISTA NEGATIVE (< 300 ng/mL); Ecstacy Urine VISTA NEGATIVE (< 500 ng/mL); Methadone Urine VISTA NEGATIVE (< 300 ng/mL); PCP Urine VISTA NEGATIVE (< 25 ng/mL); THC Urine VISTA NEGATIVE (< 50 ng/mL); Vista UDS pH Range 6
== END | disposition home or self-care (01) ==
PROVIDERS: PCP Nurse Practitioner Family; Referring Provider Anesthesiology Pain Medicine; Visit Provider Anesthesiology Pain Medicine
DX: F11.20 Opioid dependence, uncomplicated (principal)
CPT/HCPCS: 80307

== ENCOUNTER → 2024-06-20 | Outpatient (CLI) | payer MEDICARE, OTHER, SELFPAY | END | disposition home or self-care (01) | PROVIDERS: PCP Nurse Practitioner Family; Referring Provider Anesthesiology Pain Medicine; Visit Provider Anesthesiology Pain Medicine | DX: M47.812 Spondylosis without myelopathy or radiculopathy, cervical region (principal) | CPT/HCPCS: 72040 ==

== ENCOUNTER → 2025-02-13 | Outpatient (CLI) | payer MEDICARE, OTHER, SELFPAY ==
[2025-02-13 11:15] LABS: Barbiturate Urine NEGATIVE (< 200 ng/mL); Benzodiazepine Urine NEGATIVE (< 200 ng/mL); PCP Urine NEGATIVE (< 25 ng/mL); THC Urine NEGATIVE (< 50 ng/mL)
== END | disposition home or self-care (01) ==
LOC: LAB 09:26
PROVIDERS: PCP Nurse Practitioner Family; Referring Provider Anesthesiology Pain Medicine; Visit Provider Anesthesiology Pain Medicine
DX: F11.20 Opioid dependence, uncomplicated (principal)
CPT/HCPCS: 80307